=== PATIENT | female | born 1995 | race Hispanic/Latino ===

== ENCOUNTER 2023-11-18 06:09 | Emergency (ER) | payer OTHER ==
[~2023-11-18] VITALS: Ht 152.4 cm; Wt 60.9 kg
[2023-11-18] MEDS: NS 1,000 ML IV ONE (08:06)
[2023-11-18] MEDS ORDERED: UNIS25TA3 PO (08:18)
[2023-11-18] MEDS ORDERED: PYRI25TA2 PO (08:18)
[2023-11-18] MEDS ORDERED: PNV,1TAB3 (08:18)
[2023-11-18 08:29] LABS: BASO % 0.3 % (0.0-1.0); EOS % 0.2 % (0.0-3.0); HEMATOCRIT 42.8 % (36.0-47.0); LYMPH # 1.3 10^3/uL (1.5-5.0); LYMPH % 21.9 % (24.0-44.0); MEAN CORPUSCULAR HEMOGLOBIN 31.1 pg (27.0-33.0); MEAN CORPUSCULAR VOLUME 88.6 fl (80.0-96.0); MONO # 0.2 10^3/uL (0.0-0.8); MONO % 2.9 % (2.0-8.0); NEUTROPHILS # 4.6 10^3/uL (1.5-8.5); NEUTROPHILS % 74.5 % (36.0-66.0); PLATELET COUNT, AUTOMATED 208 10^3/uL (150-450); RED BLOOD COUNT 4.83 10^6/uL (4.00-5.40); WHITE BLOOD COUNT 6.1 10^3/uL (4.0-10.0)
[2023-11-18 08:47] LABS: LIPASE 30 U/L (12-53)
[2023-11-18 08:49] LABS: ALBUMIN 4.6 G/DL (3.2-5.2); ALKALINE PHOSPHATASE 53 U/L (46-116); ALT/SGPT 16 U/L (7.0-40); AST/SGOT < 8 U/L (<34); BILIRUBIN,DIRECT 0.3 MG/DL (<0.4); TOTAL PROTEIN 7.9 G/DL (5.7-8.2)
[2023-11-18 09:02] LABS: HCG, SERUM QUANTITATIVE 28466.1 MIU/ML (<4.2)
[2023-11-18] MEDS: PROMETHAZINE 25MG/ML 1ML VIAL IV ONE (09:33)
[2023-11-18 11:43] VITALS: BP 114/57; TEMP 97.6; O2SAT 99
[2023-11-18] MEDS ORDERED: PROM12.54 PR (11:58)
== END 2023-11-18 12:10 | disposition home or self-care (01) ==
LOC: M ED 06:09
DX: R11.2 Nausea with vomiting, unspecified (principal); Z3A.09 9 weeks gestation of pregnancy
CPT/HCPCS: 76801; 80047; 80076; 81001; 83690; 84702; 85025; 99284; J2550

== ENCOUNTER → 2024-03-01 | Outpatient (REF) | payer OTHER ==
[~2024-03-01] MED LIST: PNV,1TAB3; PROM12.54 PR; PYRI25TA2 PO; UNIS25TA3 PO
== END ==
LOC: M PLALAB 08:40
PROVIDERS: ATTEND Nurse Practitioner Family
DX: O26.899 Other specified pregnancy related conditions, unspecified trimester (principal); Z53.9 Procedure and treatment not carried out, unspecified reason

== ENCOUNTER → 2024-04-18 | Outpatient (REF) | payer OTHER ==
[2024-04-18 18:54] LABS: GC DNA AMPLIFICATION NEGATIVE (NEGATIVE)
== END ==
LOC: M PLALAB 15:36
PROVIDERS: ATTEND Nurse Practitioner Family
DX: Z34.82 Encounter for supervision of other normal pregnancy, second trimester (principal)

== ENCOUNTER → 2024-04-18 | Outpatient (CLI) | payer OTHER ==
[2024-04-18 18:55] LABS: HEMATOCRIT 32.9 % (36.0-47.0); HEMOGLOBIN 11.2 g/dl (12.0-15.5); MEAN CORPUSCULAR HEMOGLOBIN 31.5 pg (27.0-33.0); MEAN CORPUSCULAR VOLUME 92.7 fl (80.0-96.0); PLATELET COUNT, AUTOMATED 214 10^3/uL (150-450); RED BLOOD COUNT 3.55 10^6/uL (4.00-5.40); WHITE BLOOD COUNT 8.2 10^3/uL (4.0-10.0)
[2024-04-18 19:12] LABS: GLUCOSE CHALLENGE TEST 1 HOUR 115 MG/DL (LESS THAN 140)
[2024-04-18 19:47] LABS: HIV 1&2 SCREEN NEGATIVE (NEGATIVE)
[2024-04-18 19:55] LABS: HEPATITIS C VIRUS ABY INDEX 0.05 INDEX (<0.8)
== END ==
LOC: M PLALAB 15:07
PROVIDERS: ATTEND Nurse Practitioner Family
DX: Z34.82 Encounter for supervision of other normal pregnancy, second trimester (principal)

== ENCOUNTER → 2024-06-11 | Outpatient (REF) | payer OTHER ==
[~2024-06-11] MED LIST changes: +TUMS500C PO
== END ==
LOC: M SFHCWAGY 17:48
PROVIDERS: ATTEND Obstetrics & Gynecology
DX: Z34.93 Encounter for supervision of normal pregnancy, unspecified, third trimester (principal); Z3A.35 35 weeks gestation of pregnancy

== ENCOUNTER → 2024-06-12 | Outpatient (CLI) | payer OTHER ==
[~2024-06-12] MED LIST changes: -TUMS500C PO
== END ==
LOC: M RAD 14:17
PROVIDERS: ATTEND Obstetrics & Gynecology
DX: O26.843 Uterine size-date discrepancy, third trimester (principal); Z3A.35 35 weeks gestation of pregnancy

== ENCOUNTER 2024-06-27 11:28 | Outpatient (CLI) | payer OTHER ==
[~2024-06-27] VITALS: Ht 152.4 cm; Wt 71.8 kg
[2024-06-27] MEDS ORDERED: TUMS500C PO (11:58)
[2024-06-27] MEDS ORDERED: HOME MED LIST COMPLETE! XX SCH (12:00)
[2024-06-29] MEDS ORDERED: ACET32TAB PO (13:08)
[2024-06-29] MEDS ORDERED: IBUP80TA PO (13:08)
[2024-06-29] MEDS ORDERED: FIOR1CAP PO (14:36)
== END 2024-06-27 12:34 | disposition home or self-care (01) ==
LOC: M LDO 11:28
PROVIDERS: ATTEND Advanced Practice Midwife
DX: O26.853 Spotting complicating pregnancy, third trimester (principal); O99.820 Streptococcus B carrier state complicating pregnancy; O26.23 Pregnancy care for patient with recurrent pregnancy loss, third trimester; O99.343 Other mental disorders complicating pregnancy, third trimester; F41.9 Anxiety disorder, unspecified; Z3A.37 37 weeks gestation of pregnancy
CPT/HCPCS: 59025; G0463

== ENCOUNTER → 2024-07-03 | Outpatient (CLI) | payer OTHER ==
[~2024-07-03] VITALS: Ht 152.4 cm; Wt 59.1 kg
[~2024-07-03] MED LIST changes: +ACET32TAB PO; +FIOR1CAP PO; +HOME MED LIST COMPLETE! XX SCH; +IBUP80TA PO; +TUMS500C PO
[2024-07-03 17:15] VITALS: BP 122/75
[2024-07-03] MEDS: LR 1,000 ML IV SCH (19:10)
[2024-07-03 20:22] VITALS: BP 120/73
== END ==
LOC: M LDO 17:06
PROVIDERS: ATTEND Obstetrics & Gynecology
DX: O89.4 Spinal and epidural anesthesia-induced headache during the puerperium (principal)